=== PATIENT | female | born 1950 | race Caucasian/White ===

== ENCOUNTER 2017-03-14 12:21 | Emergency (ER) | payer OTHER | END 2017-03-14 15:42 | disposition other institution (70) | LOC: ER 12:21 | DX: K57.92 Diverticulitis of intestine, part unspecified, without perforation or abscess without bleeding (principal); N39.0 Urinary tract infection, site not specified; R10.32 Left lower quadrant pain; R10.31 Right lower quadrant pain; E66.01 Morbid (severe) obesity due to excess calories; I10 Essential (primary) hypertension; K21.9 Gastro-esophageal reflux disease without esophagitis; Z88.0 Allergy status to penicillin | CPT/HCPCS: 99284; 99285-25 ==

== ENCOUNTER 2017-03-14 12:21 | Inpatient (IN) | payer OTHER ==
[~2017-03-14] VITALS: Ht 177.8 cm; Wt 135.0 kg
[2017-03-14 12:49] LABS: BASO % 0.1 % (0.1-1.2); EOS % 0.1 % (0.7-5.8); GRAN # 10.6 10_X3_uL (1.6-6.1); GRAN % 79.6 % (34.0-71.1); HEMATOCRIT 40.7 % (34-45); HEMOGLOBIN 13.7 g/dL (11.2-15.7); LYMPH # 1.7 10_X3_uL (1.2-3.7); MEAN CORPUSCULAR HGB CONC 33.7 g/dL (32.0-36.0); MEAN CORPUSCULAR VOLUME 95.1 fL (79-95); MEAN PLATELET VOLUME 10.6 fl (7.5-11.5); MONO % 7.2 % (4.7-12.5); PLATELET COUNT 260 x10_3/uL (182-369); RED BLOOD COUNT 4.28 x10_6/uL (3.9-5.2); RED CELL DISTRIBUTION WIDTH 14.1 % (11.7-14.4); WHITE BLOOD COUNT 13.3 x10_3/uL (4.0-10.0)
[2017-03-14 13:06] LABS: ALBUMIN 4.1 gm/dL (3.4-5.0); ALKALINE PHOSPHATASE 53 U/L (50-136); ALT/SGPT 23 U/L (3.5-33.9); AST/SGOT 22 U/L (7.04-26.96); BILIRUBIN,TOTAL 0.54 mg/dL (0.0-1.0); BLOOD UREA NITROGEN 15 mg/dL (7-18); CALCIUM 9.6 mg/dL (8.7-10.7); CARBON DIOXIDE 21 mmol/L (21-32); CREATININE 0.9 mg/dL (0.6-1.3); GLUCOSE,RANDOM 161 mg/dL (70-99); LIPASE 22 U/L (6.75-60.75); POTASSIUM 3.6 mmol/L (3.5-5.1); SODIUM 137 mmol/L (136-145); TOTAL PROTEIN 7.1 gm/dL (6.4-8.2)
[2017-03-14 13:28] LABS: URINE BILIRUBIN 2+ (NEGATIVE); URINE BLOOD NEGATIVE (NEGATIVE); URINE GLUCOSE (UA) NORMAL (NORMAL); URINE KETONE 1+ (NEGATIVE); URINE LEUKOCYTE ESTERASE 1+ (NEGATIVE); URINE NITRATE POSITIVE (NEGATIVE); URINE PROTEIN 2+ (NEGATIVE)
[2017-03-14 13:43] LABS: URINE HYALINE CAST 0-2 /[HPF] (0-1/hpf); URINE MUCUS TRACE; URINE RBC RARE /[HPF] (0-2); URINE SQUAMOUS EPITHELIAL CELL 0-10 /[HPF] (NONE SEEN)
[2017-03-14 13:44] LABS: URINE BACTERIA 1+ (NONE SEEN)
[2017-03-15 06:50] LABS: HEMOGLOBIN 10.8 g/dL (11.2-15.7); MEAN CORPUSCULAR HEMOGLOBIN 31.9 pg (27.0-33.0); MEAN CORPUSCULAR HGB CONC 32.7 g/dL (32.0-36.0); MEAN CORPUSCULAR VOLUME 97.3 fL (79-95); MEAN PLATELET VOLUME 10.9 fl (7.5-11.5); RED BLOOD COUNT 3.39 x10_6/uL (3.9-5.2); RED CELL DISTRIBUTION WIDTH 14.5 % (11.7-14.4); WHITE BLOOD COUNT 8.3 x10_3/uL (4.0-10.0)
[2017-03-15 08:09] LABS: ALBUMIN 3.2 gm/dL (3.4-5.0); ALKALINE PHOSPHATASE 42 U/L (50-136); ALT/SGPT 16 U/L (3.5-33.9); AST/SGOT 14 U/L (7.04-26.96); BLOOD UREA NITROGEN 16 mg/dL (7-18); CALCIUM 8.5 mg/dL (8.7-10.7); CARBON DIOXIDE 25 mmol/L (21-32); CREATININE 0.9 mg/dL (0.6-1.3); GLUCOSE,RANDOM 120 mg/dL (70-99); POTASSIUM 3.6 mmol/L (3.5-5.1); SODIUM 140 mmol/L (136-145); TOTAL PROTEIN 5.8 gm/dL (6.4-8.2)
[2017-03-15 08:16] LABS: BILIRUBIN,TOTAL 0.33 mg/dL (0.0-1.0)
[2017-03-16 07:14] LABS: HEMATOCRIT 33.5 % (34-45); HEMOGLOBIN 11.1 g/dL (11.2-15.7); MEAN CORPUSCULAR HEMOGLOBIN 32.4 pg (27.0-33.0); MEAN CORPUSCULAR HGB CONC 33.1 g/dL (32.0-36.0); MEAN CORPUSCULAR VOLUME 97.7 fL (79-95); MEAN PLATELET VOLUME 10.8 fl (7.5-11.5); RED BLOOD COUNT 3.43 x10_6/uL (3.9-5.2); RED CELL DISTRIBUTION WIDTH 13.8 % (11.7-14.4); WHITE BLOOD COUNT 4.9 x10_3/uL (4.0-10.0)
[2017-03-16 07:22] LABS: ALBUMIN 2.8 gm/dL (3.4-5.0); ALKALINE PHOSPHATASE 42 U/L (50-136); ALT/SGPT 14 U/L (3.5-33.9); AST/SGOT 18 U/L (7.04-26.96); BLOOD UREA NITROGEN 12 mg/dL (7-18); CALCIUM 8.6 mg/dL (8.7-10.7); CARBON DIOXIDE 26 mmol/L (21-32); CREATININE 0.7 mg/dL (0.6-1.3); GLUCOSE,RANDOM 109 mg/dL (70-99); MAGNESIUM 1.7 mg/dL (1.8-2.4); POTASSIUM 4.2 mmol/L (3.5-5.1); SODIUM 141 mmol/L (136-145); TOTAL PROTEIN 5.7 gm/dL (6.4-8.2)
[2017-03-17 07:00] LABS: BASO % 0.5 % (0.1-1.2); EOS # 0.1 10_X3_uL (0.0-0.4); EOS % 3.6 % (0.7-5.8); GRAN # 2.1 10_X3_uL (1.6-6.1); GRAN % 53.5 % (34.0-71.1); HEMATOCRIT 32.8 % (34-45); HEMOGLOBIN 10.6 g/dL (11.2-15.7); LYMPH # 1.3 10_X3_uL (1.2-3.7); LYMPH % 34.2 % (19.3-51.7); MEAN CORPUSCULAR HEMOGLOBIN 31.5 pg (27.0-33.0); MEAN CORPUSCULAR HGB CONC 32.3 g/dL (32.0-36.0); MEAN CORPUSCULAR VOLUME 97.6 fL (79-95); MEAN PLATELET VOLUME 10.5 fl (7.5-11.5); MONO # 0.3 10_X3_uL (0.2-0.9); MONO % 8.2 % (4.7-12.5); PLATELET COUNT 249 x10_3/uL (182-369); RED BLOOD COUNT 3.36 x10_6/uL (3.9-5.2); RED CELL DISTRIBUTION WIDTH 13.6 % (11.7-14.4); WHITE BLOOD COUNT 3.9 x10_3/uL (4.0-10.0)
[2017-03-17 07:36] LABS: ALBUMIN 3.1 gm/dL (3.4-5.0); ALKALINE PHOSPHATASE 41 U/L (50-136); ALT/SGPT 12 U/L (3.5-33.9); AST/SGOT 14 U/L (7.04-26.96); BLOOD UREA NITROGEN 12 mg/dL (7-18); CALCIUM 8.9 mg/dL (8.7-10.7); CARBON DIOXIDE 27 mmol/L (21-32); CREATININE 0.8 mg/dL (0.6-1.3); GLUCOSE,RANDOM 114 mg/dL (70-99); POTASSIUM 3.9 mmol/L (3.5-5.1); SODIUM 138 mmol/L (136-145); TOTAL PROTEIN 5.8 gm/dL (6.4-8.2)
[2017-03-17 07:43] LABS: BILIRUBIN,TOTAL < 0.15 mg/dL (0.0-1.0)
== END 2017-03-17 11:00 | disposition home or self-care (01) | DRG 872 ==
LOC: ER 12:21 → MS 15:42 → UNDODEPER 03-17 11:52
PROVIDERS: General Practice; ADMIT Family Medicine
DX: A41.9 Sepsis, unspecified organism (principal); N39.0 Urinary tract infection, site not specified; K57.30 Diverticulosis of large intestine without perforation or abscess without bleeding; R10.31 Right lower quadrant pain; R10.11 Right upper quadrant pain; R11.0 Nausea; M75.00 Adhesive capsulitis of unspecified shoulder; Z79.52 Long term (current) use of systemic steroids; F32.9 Major depressive disorder, single episode, unspecified; K21.9 Gastro-esophageal reflux disease without esophagitis; I10 Essential (primary) hypertension; I25.10 Atherosclerotic heart disease of native coronary artery without angina pectoris; D64.9 Anemia, unspecified; Z90.49 Acquired absence of other specified parts of digestive tract; Z83.3 Family history of diabetes mellitus; Z82.49 Family history of ischemic heart disease and other diseases of the circulatory system; Z88.0 Allergy status to penicillin; Z79.899 Other long term (current) drug therapy; Z79.82 Long term (current) use of aspirin; Z99.81 Dependence on supplemental oxygen
CPT/HCPCS: 36415; 80053; 81001; 83605; 83690; 83735; 85025; 87040; 87086; 96365; 99070; 99284; 99285-25; J7040; Q9967